=== PATIENT | female | born 1965 | race African-American/Black ===

== ENCOUNTER 2017-01-23 18:46 | Emergency (ER) | payer MEDICARE | END 2017-01-23 21:15 | disposition home or self-care (01) | LOC: D.ER 18:46 | DX: M25.562 Pain in left knee (principal); M25.561 Pain in right knee; M17.0 Bilateral primary osteoarthritis of knee ==

== ENCOUNTER 2017-04-06 15:16 | Emergency (ER) | payer MEDICARE, MEDICAID | END 2017-04-06 17:01 | disposition home or self-care (01) | LOC: D.ER 15:16 | DX: M25.562 Pain in left knee (principal); M25.561 Pain in right knee ==

== ENCOUNTER → 2017-04-13 08:33 | Outpatient (CLI) | payer OTHER ==
[~2017-04-13] VITALS: Ht 162.6 cm; Wt 212.3 kg
[2017-04-13 10:25] VITALS: Ht 162.6 cm; Wt 212.3 kg
== END | disposition home or self-care (01) ==
LOC: D.FANS 08:33
DX: E66.01 Morbid (severe) obesity due to excess calories (principal)

== ENCOUNTER → 2017-06-06 08:05 | Outpatient (CLI) | payer MEDICARE ==
[2017-04-13 10:25] VITALS: BMI 80.3
[~2017-06-06 08:05] MED LIST: DIFLUCAN150 MG PO; DIOVAN HCT 320/1 TA2 PO; METOPROLOL TART50 MG PO; NORVASC10 MG PO; ULTRAM50 MG PO; ZOCOR5 MG PO
[2017-06-06 08:50] LABS: APPEARANCE CLEAR (CLEAR); BILIRUBIN NEGATIVE (NEGATIVE); COLOR YELLOW (YELLOW); GLUCOSE NEGATIVE (NEGATIVE); KETONE NEGATIVE (NEGATIVE); NITRITE NEGATIVE (NEGATIVE); PROTEIN NEGATIVE (NEGATIVE); SPECIFIC GRAVITY 1.015 (1.005-1.020); UROBILINOGEN NORMAL (NORMAL)
[2017-06-06 08:53] LABS: BASOPHILS 0 % (0-2); EOSINOPHILS 0.7 % (0-7); HEMATOCRIT 40.3 % (36.0-48.0); HEMOGLOBIN 12.2 g/dL (12-16); LYMPHOCYTES 42.7 % (15-50); MCH 25.3 pg (26.0-34.0); MCHC 30.3 g/dL (31.0-37.0); MCV 83.4 fL (80.0-100.0); MEAN PLATELET VOLUME 12.1 fL (7.4-10.4); MONOCYTES 8.2 % (2-11); NEUTROPHILS 48.4 % (40-80); PLATELET COUNT 191 10x3/uL (130-400); RBC 4.83 10x6/uL (4.00-5.40); RDW 14.9 % (11.5-14.5); WBC 5.6 10x3/uL (4.8-10.8)
[2017-06-06 09:05] LABS: ALBUMIN 3.4 g/dL (3.4-5.0); ANION GAP 9.4 mmol/L (8-16); BILIRUBIN - DIRECT 0.07 mg/dL (0.00-0.30); BILIRUBIN - INDIRECT 0.23 mg/dL (0.00-1.00); BILIRUBIN - TOTAL 0.3 mg/dL (0.2-1.3); CALCIUM 8.9 mg/dL (8.5-10.1); CARBON DIOXIDE 30.4 mmol/L (21.0-32.0); CHOL - HDL RATIO 3.3 ratio (2.3-4.1); CREATININE - SERUM 0.9 mg/dL (0.6-1.3); POTASSIUM - SERUM 3.8 mmol/L (3.5-5.1); PROTEIN - SERUM 7.8 g/dL (6.4-8.2); THYROID STIMULATING HORMONE 1.87 uIU/mL (0.36-3.74)
[2017-06-07 09:16] LABS: FOLATE (FOLIC ACID) - SERUM 18.8 ng/mL (>3.0)
[2017-06-27 09:01] VITALS: BMI 79.3
== END | disposition home or self-care (01) ==
LOC: D.LAB 08:05 → D.RAD 09:00
PROVIDERS: Surgery
DX: E66.01 Morbid (severe) obesity due to excess calories (principal)

== ENCOUNTER → 2017-06-14 08:34 | Outpatient (CLI) | payer MEDICARE ==
[2017-04-13 10:25] VITALS: BMI 80.3
[2017-06-27 09:01] VITALS: BMI 79.3
== END | disposition home or self-care (01) ==
LOC: D.RT 08:34
DX: J44.9 Chronic obstructive pulmonary disease, unspecified (principal)

== ENCOUNTER 2017-06-27 07:37 | Day surgery (SDC) | payer MEDICARE ==
[~2017-06-27] VITALS: Ht 162.6 cm; Wt 209.5 kg
[2017-06-27] MEDS ORDERED: ZOCOR5 MG PO (08:51)
[2017-06-27] MEDS ORDERED: METOPROLOL TART50 MG PO (08:52)
[2017-06-27] MEDS ORDERED: NORVASC10 MG PO (08:52)
[2017-06-27] MEDS ORDERED: DIOVAN HCT 320/1 TA2 PO (08:52)
[2017-06-27] MEDS ORDERED: DIFLUCAN150 MG PO (08:53)
[2017-06-27] MEDS ORDERED: ULTRAM50 MG PO (08:54)
[2017-06-27 09:01] VITALS: BP 163/89; Ht 162.6 cm; Wt 209.5 kg
[2017-06-27 10:38] LABS: HEMATOCRIT 37.2 % (36.0-48.0); MCH 27.1 pg (26.0-34.0); MCHC 32.3 g/dL (31.0-37.0); MCV 84.2 fL (80.0-100.0); PLATELET COUNT 194 10x3/uL (130-400); RBC 4.42 10x6/uL (4.00-5.40); RDW 15.1 % (11.5-14.5); WBC 6.3 10x3/uL (4.8-10.8)
[2017-06-27 11:08] LABS: CALC OSMOLALITY 278 mosm/kg (275-300); CALCIUM 8.8 mg/dL (8.5-10.1); CARBON DIOXIDE 28.4 mmol/L (21.0-32.0); CHLORIDE - SERUM 107 mmol/L (98-107); CREATININE - SERUM 0.7 mg/dL (0.6-1.3); GLUCOSE 105 mg/dL (74-106); POTASSIUM - SERUM 4.3 mmol/L (3.5-5.1); SODIUM 139 mmol/L (136-145); UREA NITROGEN 14 mg/dL (7-18); eGFR NON AFRICAN AMERICAN > 90 mL/min (90-120)
== END 2017-06-27 11:15 | disposition home or self-care (01) ==
LOC: D.OPS 07:37
PROVIDERS: Anesthesiology
DX: E66.01 Morbid (severe) obesity due to excess calories (principal); I10 Essential (primary) hypertension; G47.33 Obstructive sleep apnea (adult) (pediatric); K44.9 Diaphragmatic hernia without obstruction or gangrene; Z87.891 Personal history of nicotine dependence; Z01.812 Encounter for preprocedural laboratory examination

== ENCOUNTER 2018-02-27 05:50 | Inpatient (IN) | payer MEDICARE ==
[2018-02-24 09:40] LABS: HEMATOCRIT 38.2 % (36.0-48.0); HEMOGLOBIN 12.4 g/dL (12-16); MCH 26.7 pg (26.0-34.0); MCHC 32.5 g/dL (31.0-37.0); MCV 82.3 fL (80.0-100.0); MEAN PLATELET VOLUME 11.7 fL (7.4-10.4); RBC 4.64 10x6/uL (4.00-5.40); RDW 14.9 % (11.5-14.5); WBC 10.9 10x3/uL (4.8-10.8)
[2018-02-24 10:01] LABS: ANION GAP 14.4 mmol/L (8-16); CALCIUM 9.1 mg/dL (8.5-10.1); CARBON DIOXIDE 30.4 mmol/L (21.0-32.0); CREATININE - SERUM 1.2 mg/dL (0.6-1.3); POTASSIUM - SERUM 3.8 mmol/L (3.5-5.1)
[~2018-02-27] VITALS: Ht 162.6 cm; Wt 195.9 kg
[2018-02-27] MEDS ORDERED: AVAPRO300 MG PO (06:22)
[2018-02-27 06:29] VITALS: BP 113/58; BMI 77.4
[2018-02-27 16:24] VITALS: BP 166/72; Ht 162.6 cm; Wt 195.9 kg
[2018-02-27 16:35] VITALS: BP 166/72
[2018-02-27 20:00] VITALS: BP 142/76
[2018-02-28] VITALS: BP 155/85
[2018-02-28 05:00] VITALS: BP 161/88
[2018-02-28 06:05] LABS: BASOPHILS 0.1 % (0-2); EOSINOPHILS 0 % (0-7); HEMATOCRIT 35.6 % (36.0-48.0); HEMOGLOBIN 11.4 g/dL (12-16); IMMATURE GRANULOCYTES 0.2 % (0-5); LYMPHOCYTES 13.5 % (15-50); MCH 25.9 pg (26.0-34.0); MCV 80.7 fL (80.0-100.0); MEAN PLATELET VOLUME 12.3 fL (7.4-10.4); MONOCYTES 6.9 % (2-11); NEUTROPHILS 79.3 % (40-80); PLATELET COUNT 219 10x3/uL (130-400); RBC 4.41 10x6/uL (4.00-5.40); RDW 14.5 % (11.5-14.5); WBC 9.9 10x3/uL (4.8-10.8)
[2018-02-28 06:18] LABS: ALBUMIN 2.6 g/dL (3.4-5.0); ANION GAP 15.2 mmol/L (8-16); BILIRUBIN - TOTAL 0.23 mg/dL (0.2-1.3); CALCIUM 9.1 mg/dL (8.5-10.1); CARBON DIOXIDE 26.2 mmol/L (21.0-32.0); CREATININE - SERUM 1.1 mg/dL (0.6-1.3); POTASSIUM - SERUM 4.4 mmol/L (3.5-5.1); PROTEIN - SERUM 7.2 g/dL (6.4-8.2)
[2018-02-28 09:21] VITALS: BP 154/69
[2018-02-28 12:51] VITALS: BP 136/79
[2018-02-28 17:31] VITALS: BP 142/67
[2018-02-28 20:00] VITALS: BP 163/86
[2018-03-01] VITALS: BP 123/62
[2018-03-01 04:00] VITALS: BP 146/67
[2018-03-01 08:15] VITALS: BP 108/44
[2018-03-01 09:13] LABS: ANION GAP 14.4 mmol/L (8-16); BASOPHILS 0.1 % (0-2); CALCIUM 9.1 mg/dL (8.5-10.1); CARBON DIOXIDE 26.6 mmol/L (21.0-32.0); CREATININE - SERUM 1.3 mg/dL (0.6-1.3); EOSINOPHILS 0.1 % (0-7); HEMATOCRIT 34.4 % (36.0-48.0); HEMOGLOBIN 10.8 g/dL (12-16); IMMATURE GRANULOCYTES 0.4 % (0-5); LYMPHOCYTES 23.7 % (15-50); MAGNESIUM - SERUM 1.9 mg/dL (1.8-2.4); MCH 25.4 pg (26.0-34.0); MCHC 31.4 g/dL (31.0-37.0); MCV 80.9 fL (80.0-100.0); MEAN PLATELET VOLUME 12.4 fL (7.4-10.4); MONOCYTES 9.6 % (2-11); NEUTROPHILS 66.1 % (40-80); PLATELET COUNT 233 10x3/uL (130-400); RBC 4.25 10x6/uL (4.00-5.40); RDW 14.6 % (11.5-14.5)
[2018-03-01] MEDS ORDERED: DILAUDID4 MG PO (10:16)
[2018-03-01] MEDS ORDERED: CYCLOBENZAPRINE10 MG PO (10:17)
[2018-03-01] MEDS ORDERED: ZOFRAN ODT4 MG/UDTAB PO (10:17)
== END 2018-03-01 14:51 | disposition home or self-care (01) | DRG 621 ==
LOC: D.SDCHOLD 05:50 → D.MS 05:50 → D.SDCHOLD 08:00 → D.MS 15:49
PROVIDERS: Anesthesiology; Surgery
PROC: 0BQT4ZZ Repair Diaphragm, Percutaneous Endoscopic Approach (ICD-10-PCS; 2018-02-27)
PROC: 0DB64Z3 Excision of Stomach, Percutaneous Endoscopic Approach, Vertical (ICD-10-PCS; principal; 2018-02-27 08:00)
DX: E66.01 Morbid (severe) obesity due to excess calories (principal); Z68.45 Body mass index [BMI] 70 or greater, adult; I10 Essential (primary) hypertension; G47.33 Obstructive sleep apnea (adult) (pediatric); K44.9 Diaphragmatic hernia without obstruction or gangrene

== ENCOUNTER → 2018-03-20 10:02 | Outpatient (CLI) | payer MEDICARE ==
[2018-02-27 16:24] VITALS: BMI 74.1
[~2018-03-20 10:02] MED LIST changes: +AVAPRO300 MG PO; +CYCLOBENZAPRINE10 MG PO; +DILAUDID4 MG PO; +ZOFRAN ODT4 MG/UDTAB PO
== END | disposition home or self-care (01) ==
LOC: D.RT 10:00
DX: R06.02 Shortness of breath (principal); R94.2 Abnormal results of pulmonary function studies

== ENCOUNTER 2018-03-23 10:56 | Emergency (ER) | payer MEDICARE ==
[~2018-03-23] VITALS: Ht 162.6 cm; Wt 185.5 kg
[2018-03-23 11:19] VITALS: Ht 162.6 cm; Wt 185.5 kg
[2018-03-23 12:00] LABS: ALBUMIN 3.5 g/dL (3.4-5.0); ANION GAP 17.2 mmol/L (8-16); BILIRUBIN - TOTAL 0.54 mg/dL (0.2-1.3); CARBON DIOXIDE 25.8 mmol/L (21.0-32.0); CREATININE - SERUM 0.9 mg/dL (0.6-1.3)
[2018-03-23 12:12] LABS: HEMATOCRIT 41.9 % (36.0-48.0); LYMPHOCYTES 26.7 % (15-50); MCH 25.8 pg (26.0-34.0); MCV 83.1 fL (80.0-100.0); MEAN PLATELET VOLUME 13.6 fL (7.4-10.4); NEUTROPHILS 63.6 % (40-80); PLATELET COUNT 235 10x3/uL (130-400); RBC 5.04 10x6/uL (4.00-5.40); RDW 15.4 % (11.5-14.5); WBC 8.3 10x3/uL (4.8-10.8)
[2018-03-23 12:18] LABS: APPEARANCE SL CLDY (CLEAR); BACTERIA MODERATE /hpf (NONE SEEN); BILIRUBIN NEGATIVE (NEGATIVE); COLOR YELLOW (YELLOW); GLUCOSE NEGATIVE (NEGATIVE); KETONE LARGE mg/dL (NEGATIVE); MUCUS <1+ /lpf (NONE SEEN); NITRITE NEGATIVE (NEGATIVE); PROTEIN TRACE mg/dL (NEGATIVE); UROBILINOGEN NORMAL (NORMAL); WHITE CELLS - URINE 0-5 /hpf (0-5)
[2018-03-23 12:19] LABS: RED CELLS - URINE RARE /hpf (0-5)
[2018-03-23] MEDS ORDERED: KEFLEX500 MG PO (19:12)
[2018-03-23] MEDS ORDERED: ZOFRAN4 MG PO (19:12)
[2018-03-23] MEDS ORDERED: PHENERGAN25 M1 PO (19:12)
[2018-03-23 20:17] VITALS: BP 138/97
== END 2018-03-23 20:17 | disposition home or self-care (01) ==
LOC: D.ER 10:56
PROVIDERS: Family Medicine
DX: E86.0 Dehydration (principal); R11.2 Nausea with vomiting, unspecified; Z98.84 Bariatric surgery status; I10 Essential (primary) hypertension

== ENCOUNTER 2018-03-27 09:58 | Inpatient (IN) | payer MEDICARE, MEDICAID ==
[~2018-03-27] VITALS: Ht 162.6 cm; Wt 183.7 kg
[~2018-03-27 09:58] MED LIST changes: +KEFLEX500 MG PO; +PHENERGAN25 M1 PO; +ZOFRAN4 MG PO
[2018-03-27 10:36] LABS: BASOPHILS 0.1 % (0-2); EOSINOPHILS 0.9 % (0-7); HEMATOCRIT 41.9 % (36.0-48.0); HEMOGLOBIN 13.2 g/dL (12-16); IMMATURE GRANULOCYTES 0.3 % (0-5); LYMPHOCYTES 22.6 % (15-50); MCH 26.1 pg (26.0-34.0); MCHC 31.5 g/dL (31.0-37.0); MCV 82.8 fL (80.0-100.0); NEUTROPHILS 68.1 % (40-80); PLATELET COUNT 220 10x3/uL (130-400); RBC 5.06 10x6/uL (4.00-5.40); RDW 15.1 % (11.5-14.5); WBC 9.2 10x3/uL (4.8-10.8)
[2018-03-27 10:49] LABS: ALBUMIN 3.2 g/dL (3.4-5.0); ALKALINE PHOSPHATASE 80 U/L (46-116); ALT (SGPT) 55 U/L (10-68); CALC OSMOLALITY 286 mosm/kg (275-300); CALCIUM 9.7 mg/dL (8.5-10.1); CARBON DIOXIDE 26.5 mmol/L (21.0-32.0); CHLORIDE - SERUM 105 mmol/L (98-107); CREATININE - SERUM 1.1 mg/dL (0.6-1.3); GLUCOSE 105 mg/dL (74-106); PROTEIN - SERUM 8.4 g/dL (6.4-8.2); SODIUM 145 mmol/L (136-145); UREA NITROGEN 8 mg/dL (7-18); eGFR NON AFRICAN AMERICAN 55 mL/min (90-120)
[2018-03-27 10:53] LABS: AMYLASE - SERUM 46 U/L (25-115); LIPASE 296 U/L (73-393); TROPONIN-I < 0.017 ng/mL (0.000-0.060)
[2018-03-27 13:00] VITALS: BP 136/84
--- NOTE | 2018-03-27 13:34 | NUR ---
2ND NS BOLUS COMPLETED AT 1330
--- NOTE | 2018-03-27 13:34 | NUR ---
1ST POTASSIUM RIDER COMPLETED AT 1330.
[2018-03-27 14:20] LABS: APPEARANCE HAZY (CLEAR); BILIRUBIN NEGATIVE (NEGATIVE); COLOR YELLOW (YELLOW); GLUCOSE NEGATIVE (NEGATIVE); KETONE MODERATE mg/dL (NEGATIVE); NITRITE NEGATIVE (NEGATIVE); PROTEIN TRACE mg/dL (NEGATIVE); SPECIFIC GRAVITY 1.015 (1.005-1.020); UROBILINOGEN NORMAL (NORMAL)
[2018-03-27 14:21] LABS: BACTERIA MODERATE /hpf (NONE SEEN); CALCIUM OXALATE CRYSTALS 0-5 /hpf (NONE SEEN); HYALINE CAST OCC /lpf (NONE SEEN); MUCUS <1+ /lpf (NONE SEEN); URIC ACID CRYSTALS RARE /hpf (NONE SEEN); WHITE CELLS - URINE 0-5 /hpf (0-5)
--- NOTE | 2018-03-27 15:08 | NUR ---
2ND [facility] RIDER COMP 1445.
--- NOTE | 2018-03-27 16:16 | NUR ---
PT IV TO LAC ACCIDENTLY PULLED OUT PER PT. DRESSING APPLIED. BLEEDING CONTROLLED. WILL START ANOTHER IV.
[2018-03-27 17:00] VITALS: BP 155/78
--- NOTE | 2018-03-27 17:35 | NUR ---
MAXIPIME INFUSION COMPLETED AT 1710.
--- NOTE | 2018-03-27 19:00 | NUR ---
FOLVITE INFUSION COMPETED AT 1850
--- NOTE | 2018-03-27 19:15 | NUR ---
PT RESTING ON BED NO S/S OF ACUTE DISTRESS NOTED.
--- NOTE | 2018-03-27 19:25 | NUR ---
RN CONTACTED PHARMACY REGARDING NO BACLOFEN IN PYXIS.
[2018-03-27 21:27] VITALS: BP 177/86
[2018-03-27 23:57] VITALS: BP 177/86; BMI 69.7
[2018-03-28 04:00] VITALS: BP 166/91
--- NOTE | 2018-03-28 07:15 | NUR ---
RECIEVED REPORT FROM IRMA IN ER. RECIEVED PT IN BED WITH STAFF ASSISTING. ALERT AND ORIENTED X4. UP AD ANDREA TO B/R. DENIES ANY NEEDS. WILL CONT. POC,
[2018-03-28 07:40] LABS: BASOPHILS 0.1 % (0-2); EOSINOPHILS 1.8 % (0-7); HEMOGLOBIN 11.3 g/dL (12-16); IMMATURE GRANULOCYTES 0.3 % (0-5); LYMPHOCYTES 24.9 % (15-50); MCH 25.5 pg (26.0-34.0); MCHC 30.5 g/dL (31.0-37.0); MCV 83.5 fL (80.0-100.0); MONOCYTES 7.1 % (2-11); NEUTROPHILS 65.8 % (40-80); PLATELET COUNT 191 10x3/uL (130-400); RBC 4.43 10x6/uL (4.00-5.40); RDW 15.5 % (11.5-14.5); WBC 7.8 10x3/uL (4.8-10.8)
[2018-03-28 07:42] VITALS: BP 131/78
--- NOTE | 2018-03-28 07:42 | NUR ---
RCVD PT FROM PT SHIFT. PT IS LYING ON BACK WITH HOB 45 DEGREES. AAOX3. HR-RRR, PPP, BREATH SOUNDS CLEAR & UNLABORED X2. BOWEL SOUNDS ACTIVE X4. PIV TO RT AC C/D/I WITHOUT ERYTHEMA OR EDEMA NOTED TO SITE. PT DENIES PAIN, N/V/D. DENIES NEEDS. BED LOW, WHEELS LOCKED, CALL LIGHT AND PHONE WITHIN REACH, SIDE RAILS UP X2.
[2018-03-28 08:01] LABS: CALC OSMOLALITY 289 mosm/kg (275-300); CALCIUM 8.6 mg/dL (8.5-10.1); CARBON DIOXIDE 26.9 mmol/L (21.0-32.0); CHLORIDE - SERUM 108 mmol/L (98-107); GLUCOSE 90 mg/dL (74-106); POTASSIUM - SERUM 3.3 mmol/L (3.5-5.1); SODIUM 147 mmol/L (136-145); UREA NITROGEN 6 mg/dL (7-18); eGFR NON AFRICAN AMERICAN 79 mL/min (90-120)
[2018-03-28 08:04] LABS: CREATININE - SERUM 0.8 mg/dL (0.6-1.3)
--- NOTE | 2018-03-28 08:51 | NUR ---
PT UP TO BATHROOM TO VOID. AMB WITHOUT DIFFICULTY. NO FURTHER NEEDS VOICED.
--- NOTE | 2018-03-28 09:12 | NUR ---
CUP OF ICE PROVIDED PER PT REQUEST. NO FURTHER NEEDS VOICED AT THIS TIME.
[2018-03-28 10:24] VITALS: Ht 162.6 cm; Wt 183.7 kg
--- NOTE | 2018-03-28 10:42 | NUR ---
PT UP TO BATHROOM. BED IN ROOM CHANGED OUT. PHYSICAL THERAPY STATES PT IS OK TO AMB PER SELF. WILL CONTINUE TO MONITOR.
--- NOTE | 2018-03-28 10:53 | NUR ---
ICE CHIPS PROVIDED PER PT REQUEST.
--- NOTE | 2018-03-28 11:04 | NUR ---
PROTONIX AND REGLAN GIVEN PER ORDERS. SEE EMAR FOR ADMINISTRATION.
--- NOTE | 2018-03-28 11:23 | NUR ---
POTASSIUM FLUIDS HUNG AND SET TO INFUSE PER ORDERS. SEE EMAR FOR ADMINISTRATION.
[2018-03-28 13:39] VITALS: BP 136/82
--- NOTE | 2018-03-28 13:42 | NUR ---
ROUNDS MADE. VSS. NO NEEDS VOICED. WILL CONT TO MONITOR.
--- NOTE | 2018-03-28 14:02 | NUR ---
PT UP TO BATHROOM. REPORTS BM. WIPES PROVIDED PER REQUEST. NO FURTHER NEEDS VOICED.
--- NOTE | 2018-03-28 16:07 | NUR ---
BACLOFEN GIVEN PER ORDERS. SEE EMAR FOR ADMINISTRATION.
[2018-03-28 17:00] VITALS: BP 143/77
--- NOTE | 2018-03-28 17:50 | NUR ---
ROUNDS MADE. PT SITTING UP IN BED WATCHING TELEVISION. DENIES NEEDS AT THIS TIME. SCHEDULED MEDS GIVEN PER ORDERS. SEE EMAR FOR ADMINISTRATION.
[2018-03-28 19:45] VITALS: BP 150/78
--- NOTE | 2018-03-28 19:45 | NUR ---
ASSESSMENT PER FLOW SHEET, VS OBTAINED, IV IN RIGHT AC INTACT WITH NO REDNESS OR EDEMA INFUSING NS WITH KCL AT 125 ML/HR PER MD ORDERS, SEE EMAR, THIAMINE HUNG PER MD ORDERS, SEE EMAR, PT REPORTS FLATUS, BM TODAY AND VOIDING WITH NO DIFFICULTY, PT DENIES NEEDS OR PAIN AT THIS TIME, BED IN LOW POSITION, SIDE RAILS X 2, CALL LIGHT IN REACH
--- NOTE | 2018-03-28 20:58 | NUR ---
FOLVITE HUNG VIA PUMP AND ADM BACLOFEN PO PER MD ORDERS, SEE EMAR
--- NOTE | 2018-03-28 21:00 | NUR ---
NEW BAG OF NS WITH KCL HUNG IV PER MD ORDERS, SEE EMAR, PT DENIES PAIN, REQUESTED AND SERVED FRESH H20, AND HEATED UP CHICKEN BROTH, PT UP TO BR, VOIDED WITH NO DIFFICULTY, BACK TO BED, PT DENIES FURTHER NEEDS, BED IN LOW POSITION, SIDE RAILS X 2, CALL LIGHT IN REACH
--- NOTE | 2018-03-28 22:15 | NUR ---
PT RESTING WITH EYES CLOSED, RESP QUIET, NO DISTRESS NOTED, LEFT UNDISTURBED AT THIS TIME, BED IN LOW POSITION, SIDE RAILS X 2, CALL LIGHT IN REACH
[2018-03-29 00:30] VITALS: BP 148/72
--- NOTE | 2018-03-29 00:30 | NUR ---
VS OBTAINED PER QUARTER SUPERVISOR
--- NOTE | 2018-03-29 01:06 | NUR ---
PT RESTING WITH EYES CLOSED, AROUSES TO SOFT VERBAL STIMULATION, ADM REGLAN PER MD ORDERS SIVP, SEE EMAR, PT DENIES NEEDS OR PAIN AT THIS TIME, BED IN LOW POSITION, SIDE RAILS X 2, CALL LIGHT IN REACH
--- NOTE | 2018-03-29 03:20 | NUR ---
ADM MAXIPINE IVPB PER MD ORDERS, SEE EMAR, NO NEEDS VOICED, BED IN LOW POSITION, SIDE RAILS X 2, CALL LIGHT IN REACH
[2018-03-29 05:13] VITALS: BP 136/78
--- NOTE | 2018-03-29 05:13 | NUR ---
LOOPER OPERATOR TO ROOM FOR VS, THIS RN TO ROOM ALSO, PT DENIES NEEDS OR PAIN AT THIS TIME, BED IN LOW POSITION, SIDE RAILS X 2, CALL LIGHT IN REACH
[2018-03-29 06:34] LABS: BASOPHILS 0.3 % (0-2); EOSINOPHILS 2.4 % (0-7); HEMATOCRIT 38.7 % (36.0-48.0); IMMATURE GRANULOCYTES 0.1 % (0-5); LYMPHOCYTES 27.6 % (15-50); MCH 25.4 pg (26.0-34.0); MONOCYTES 7.8 % (2-11); NEUTROPHILS 61.8 % (40-80); PLATELET COUNT 184 10x3/uL (130-400); RBC 4.72 10x6/uL (4.00-5.40); RDW 15.4 % (11.5-14.5); WBC 7.4 10x3/uL (4.8-10.8)
[2018-03-29 06:50] LABS: CALC OSMOLALITY 289 mosm/kg (275-300); CALCIUM 9.1 mg/dL (8.5-10.1); CARBON DIOXIDE 28.4 mmol/L (21.0-32.0); CHLORIDE - SERUM 109 mmol/L (98-107); CREATININE - SERUM 0.8 mg/dL (0.6-1.3); GLUCOSE 111 mg/dL (74-106); POTASSIUM - SERUM 3.1 mmol/L (3.5-5.1); SODIUM 147 mmol/L (136-145); eGFR NON AFRICAN AMERICAN 79 mL/min (90-120)
[2018-03-29 07:04] LABS: UREA NITROGEN 4 mg/dL (7-18)
--- NOTE | 2018-03-29 07:59 | NUR ---
40 MEQ KCL GIVEN PO PER ELECTROLYTE PROTOCOL FOR LOW POTASSIUM. PT TOLERATED WELL. DENIES PAIN OR NEEDS.
[2018-03-29 08:01] VITALS: BP 146/58
--- NOTE | 2018-03-29 08:01 | NUR ---
SHIFT ASSESSMENT COMPLETED AT THIS TIME. PT IS AAOX3, HR-RRR, PPP, BREATH SOUNDS CLEAR & UNLABORED X2, BOWEL SOUNDS ACTIVE X4. PIV TO RT AC PATENT AND C/D/I. PT REPORTS NO N/V/D THIS AM. DENIES PAIN OR NEEDS. BED LOW, WHEELS LOCKED, CALL LIGHT AND PHONE WITHIN REACH, SIDE RAILS UP X2.
--- NOTE | 2018-03-29 09:42 | NUR ---
SCHEDULED MEDS GIVEN PER ORDERS. SEE EMAR FOR ADMINISTRATION.
--- NOTE | 2018-03-29 11:15 | NUR ---
ROUNDS MADE. PT DENIES PAIN OR NEEDS AT THIS TIME. WILL CONT TO MONITOR PRN
[2018-03-29 12:15] VITALS: BP 168/92
--- NOTE | 2018-03-29 12:37 | NUR ---
PIV SL LOCKED AT THIS TIME SO THAT PT MAY GIVE HERSELF A SPONGE BATH. BATHING CLOTHES, CLEAN GOWN, AND PINK PAD PROVIDED. NO FURTHER NEEDS VOICED.
--- NOTE | 2018-03-29 13:00 | NUR ---
PT DENIES WANTING CHICKEN BROTH BROUGHT ON MEAL TRAY. BEEF BROTH OFFERED AND PT IS AGREEABLE. SAME PROVIDED. NO FURTHER NEEDS VOICED.
--- NOTE | 2018-03-29 13:24 | NUR ---
DR BOO TO PT ROOM AT THIS TIME.
--- NOTE | 2018-03-29 13:31 | NUR ---
DR BOO OFF UNIT. V/O RCVD THAT PT MAY HAVE FULL LIQUID DIET.
--- NOTE | 2018-03-29 14:02 | NUR ---
PT SITTING UP IN BED WATCHING T.V. DENIES NEEDS.
--- NOTE | 2018-03-29 17:37 | NUR ---
LEVSIN GIVEN PER ORDERS. SEE EMAR. PT UP TO BATHROOM AMB PER SELF WITHOUT DIFFICULTY. FOLIC ACID SET TO INFUSE PER ORDERS. SEE EMAR FOR ADMINISTRATION. NO FURTHER NEEDS VOICED.
--- NOTE | 2018-03-29 18:44 | NUR ---
FOLIC ACID INFUSION COMPLETE. PT DENIES NEEDS.
--- NOTE | 2018-03-29 19:08 | NUR ---
REPORT GIVEN TO ONCOMING NURSERY HELPER NURSE.
--- NOTE | 2018-03-29 19:25 | NUR ---
SITTING UP IN BED. ALERT AND ORIENTED X4. RESP EVEN AND NONLABORED. ABD OBESE. OLD SCARS NOTED FROM GASTRIC BYPASS DONE 02/27/18. BS ACTIVE X4 QUADS. DENIES N/V. REPORTS LOOSE BM TODAY. AMBULATORY. NS WITH KCL INFUSING @ 60 ML/HR IN RT AC WITHOUT DIFF. NO DISTRESS. SR ELEVATED X2. CL IN REACH.
[2018-03-29 19:55] VITALS: BP 161/91
--- NOTE | 2018-03-29 23:47 | NUR ---
HAS BEEN DRINKING GRAPE JUICE AND BROTH. VISITOR AT BEDSIDE. NO VOMITING NOTED. YASMEEN FLUIDS WELL SO FAR. CL IN REACH.
[2018-03-29 23:49] VITALS: BP 157/81
[2018-03-30 03:55] VITALS: BP 162/79
--- NOTE | 2018-03-30 04:22 | NUR ---
WENT TO SLEEP LATE. NO N/V SO FAR THIS SHIFT. NO DISTRESS. CL IN REACH
[2018-03-30 07:01] LABS: BASOPHILS 0.2 % (0-2); HEMATOCRIT 36.9 % (36.0-48.0); HEMOGLOBIN 11.5 g/dL (12-16); IMMATURE GRANULOCYTES 0.2 % (0-5); LYMPHOCYTES 27.1 % (15-50); MCH 25.7 pg (26.0-34.0); MCHC 31.2 g/dL (31.0-37.0); MCV 82.4 fL (80.0-100.0); MONOCYTES 10.1 % (2-11); NEUTROPHILS 60.4 % (40-80); PLATELET COUNT 189 10x3/uL (130-400); RBC 4.48 10x6/uL (4.00-5.40); RDW 15.5 % (11.5-14.5); WBC 5.5 10x3/uL (4.8-10.8)
[2018-03-30 07:21] LABS: ANION GAP 12.8 mmol/L (8-16); CALCIUM 9.2 mg/dL (8.5-10.1); CARBON DIOXIDE 31.2 mmol/L (21.0-32.0); CREATININE - SERUM 0.9 mg/dL (0.6-1.3)
[2018-03-30 08:01] VITALS: BP 158/85
[2018-03-30] MEDS ORDERED: LEVSIN/ANASP0.125 MG PO (08:43)
[2018-03-30] MEDS ORDERED: BACLOFEN10 MG PO (08:44)
--- NOTE | 2018-03-30 09:00 | NUR ---
AM ASSESSMENT COMPLETED CHARTED ON FLOWSHEET. PT DENIES NAUSEA AND STATES SHE HAS NOT HAD ANY VOMITING SINCE ADMIT. UP AD ANDREA AND DENIES ANY DIZZINESS WHEN GETTING UP FROM BED. NO COMPLAINTS OR NEEDS AT THIS TIME. SIDE RAILS UP X 2 WITH PHONE AND CALL LIGHT IN REACH.
--- NOTE | 2018-03-30 10:45 | NUR ---
DISCHARGE INSTRUCTIONS GIVEN TO PATIENT VERBALLY AND IN PRINTED HANDOUTS INCLUDING INFORMATION ON PRESCIRBED MEDICATIONS TO BE TAKEN AT HOME. PATIENT INFORMED OF SCHEDULED FOLLOW UP WITH DR. BOO IN 1 WEEK ON 04/06/2018 AT 9:45 AM. PT. VERBALIZED UNDERSTANDING OF ALL DISCHARGE INSTRUCTIONS. PT. ALSO GIVEN COPY OF THE PHASE 2 BARIATRIC DIET SHE IS TO FOLLOW ORDERED BY DR. BOO.
--- NOTE | 2018-03-30 10:50 | MORECARE ---
CASE MANAGEMENT DISCHARGE SUMMARY PATIENT: KIM MARQUEZ UNIT: [id number] ADM DATE: 03/27/18 AGE: 52 : 63 SEX: F ROOM/BED: D.1222 AUTHOR: KAMRAN IMR PHYSICIAN: REFERRING PHYSICIAN: SUN BOO MD DATE OF SERVICE: 03/30/18 Discharge Plan Patient Name: KIM MARQUEZ Facility: [facility]:[place] : 1965 Planned Disposition: Home Anticipated Discharge Date: 03/30/18 Discharge Date: Expected LOS: 3 Initial Reviewer: [email or web address] Initial Review Date: 03/30/2018 Generated: 03/30/18 11:50 am DCPIA - Discharge Planning Initial Assessment Updated by [email or web address]: Andreina Montano on 03/30/18 10:49 am * Is the patient Alert and Oriented? Yes * How many steps to enter\exit or inside your home? * PCP Dr Erin Torres, * Pharmacy [facility] on [facility] * Preadmission Environment Home with Family * ADLs Independent * Equipment Cane CPAP Elevated [place] Seat Grab Bars Shower Chair * Other Equipment [place] Patient provides CPAP * List name and contact numbers for known caregivers / representatives who currently or will assist patient after discharge: Albertina Marquez, mother, * Verbal permission to speak to the caregivers and representatives has been obtained from the patient. No * Community resources currently utilized None * Additional services required to return to the preadmission environment? No * Can the patient safely return to the preadmission environment? Yes * Has this patient been hospitalized within the prior 30 days at any hospital? No Patient Name: KIM MARQUEZ Page [id number] at 1050 All edits/amendments must be made on the electronic document DICTATION DATE: 03/30/181048 FRONT END WEB DESIGNER: VIJAY 03/30/181048 RPT#: [id number] DC DATE: STATUS: ADM IN [facility] [address] [place] [address] END OF REPORT
--- NOTE | 2018-03-30 10:57 | NUR ---
PIV DISCONTINUED AT THIS TIME WITH BANDAID PLACED TO IV SITE.
--- NOTE | 2018-03-30 11:06 | MORECARE ---
CASE MANAGEMENT DISCHARGE SUMMARY PATIENT: KIM MARQUEZ UNIT: [id number] ADM DATE: 03/27/18 AGE: 52 : 63 SEX: F ROOM/BED: D.1222 AUTHOR: KAMRAN MIR PHYSICIAN: REFERRING PHYSICIAN: SUN BOO MD DATE OF SERVICE: 03/30/18 Discharge Plan Patient Name: KIM MARQUEZ Facility: [facility]:[place] : 1965 Planned Disposition: Home Anticipated Discharge Date: 03/30/18 Discharge Date: Expected LOS: 3 Initial Reviewer: [email or web address] Initial Review Date: 03/30/2018 Generated: 03/30/18 12:06 pm Comments DCP- Discharge Planning Updated by [email or web address]: Andreina Montano on 03/30/18 10:[address] Patient Name: KIM MARQUEZ Admission Status: ER Accout number: [id number] Admission Date: 03-27-2018 : 1965 Admission Diagnosis: Attending: SUN BOO Current LOS: 3 Anticipated DC Date: 03-30-2018 Planned Disposition: Home Primary Insurance: [employer] MEDICARE ADV Discharge Planning Comments: Late entry for 10:00. CM met with patient about discharge planning / needs. Patient states her plan is to return home where she lives with her mother. States she has a cane and CPAP ([employer]). States she thinks the settings on her CPAP need to be lowered. Informed patient that CPAP settings are set based on orders from Dr.Christine Torres and patient would need to talk to her doctor about changing the orders for the CPAP settings. Patient verbalized understanding and stated she would get with Dr. Torres about the CPAP, Patient states her mother has a shower chair, grab bars, and a raised commode in her bathroom that the patient can use if needed. Denies need for home health or other community resource needs. States she feels safe in her home environment and denies any discharge planning needs or concerns at this time. CM provided patient an excuse letter for school. CM explained and served DC IMM. CM will continue to follow and assist as needed with discharge planning needs. Braiding Machine Operator: Andreina Montano DCPIA - Discharge Planning Initial Assessment Updated by [email or web address]: Andreina Montano on 03/30/18 10:49 am * Is the patient Alert and Oriented? Yes * How many steps to enter\exit or inside your home? * PCP Dr Erin Torres, * Pharmacy [facility] on [facility] * Preadmission Environment Home with Family * ADLs Independent * Equipment Cane CPAP Elevated [place] Seat Grab Bars Shower Chair * Other Equipment [employer] [facility] Patient provides CPAP * List name and contact numbers for known caregivers / representatives who currently or will assist patient after discharge: Albertina Marquez, mother, * Verbal permission to speak to the caregivers and representatives has been obtained from the patient. No * Community resources currently utilized None * Additional services required to return to the preadmission environment? No * Can the patient safely return to the preadmission environment? Yes * Has this patient been hospitalized within the prior 30 days at any hospital? No Coverage Notice Reviewer: [id number] - Andreina Montano Notice Issued Date-Time: 03/30/2018 10:05 Notice Type: IM Discharge Notice Notice Delivered To: Patient Relationship to Patient: Self Therapeutic Recreation Leader Name: Delivery Method: - Daya Days: Prior Verbal Notification: Recipient Understood Notice: Yes Recipient Signature: Yes Med Rec Note Co-signed by Attending: Coverage Notice Comment: Last DP export: 03/30/18 9:50 a Patient Name: KIM MARQUEZ Page [phone] at 1106 All edits/amendments must be made on the electronic document DICTATION DATE: 03/30/181105 SIZE CHANGER: VIJAY 03/30/18 110 RPT#: [id number] DC DATE: STATUS: ADM IN [facility] [address] [place] [address] END OF REPORT
--- NOTE | 2018-03-30 11:45 | NUR ---
PT CALLS OUT STATING THAT SHE IS READY TO LEAVE, WINE AND SPIRITS CLERK CALLED. PT TAKEN OUT BY WHEELCHAIR, HOME WITH FAMILY.
--- NOTE | 2018-03-30 16:43 | MORECARE ---
CASE MANAGEMENT DISCHARGE SUMMARY PATIENT: KIM MARQUEZ UNIT: [id number] ADM DATE: 03/27/18 AGE: 52 : 63 SEX: F ROOM/BED: D.1222 AUTHOR: ADEOLADOC PHYSICIAN: REFERRING PHYSICIAN: SUN BOO MD DATE OF SERVICE: 03/30/18 Discharge Plan Patient Name: KIM MARQUEZ Facility: [facility]:[place] : 1965 Planned Disposition: Home Anticipated Discharge Date: 03/30/18 Discharge Date: 03/30/2018 Expected LOS: 3 Initial Reviewer: [email or web address] Initial Review Date: 03/30/2018 Generated: 03/30/18 5:42 pm Comments DCP- Discharge Planning Updated by [email or web address]: Andreina Montano on 03/30/18 10:[address] Patient Name: KIM MARQUEZ Admission Status: ER Accout number: [id number] Admission Date: 03-27-2018 : 1965 Admission Diagnosis: Attending: SUN BOO Current LOS: 3 Anticipated DC Date: 03-30-2018 Planned Disposition: Home Primary Insurance: [employer] MEDICARE ADV Discharge Planning Comments: Late entry for 10:00. CM met with patient about discharge planning / needs. Patient states her plan is to return home where she lives with her mother. States she has a cane and CPAP ([employer]). States she thinks the settings on her CPAP need to be lowered. Informed patient that CPAP settings are set based on orders from Dr.Christine Torres and patient would need to talk to her doctor about changing the orders for the CPAP settings. Patient verbalized understanding and stated she would get with Dr. Torres about the CPAP, Patient states her mother has a shower chair, grab bars, and a raised commode in her bathroom that the patient can use if needed. Denies need for home health or other community resource needs. States she feels safe in her home environment and denies any discharge planning needs or concerns at this time. CM provided patient an excuse letter for school. CM explained and served DC IMM. CM will continue to follow and assist as needed with discharge planning needs. Matcher Leather Parts: Andreina Montano DCPIA - Discharge Planning Initial Assessment Updated by [email or web address]: Andreina Montano on 03/30/18 10:49 am * Is the patient Alert and Oriented? Yes * How many steps to enter\exit or inside your home? * PCP Dr Erin Torres, * Pharmacy [facility] on [facility] * Preadmission Environment Home with Family * ADLs Independent * Equipment Cane CPAP Elevated [place] Seat Grab Bars Shower Chair * Other Equipment [employer] [facility] Patient provides CPAP * List name and contact numbers for known caregivers / representatives who currently or will assist patient after discharge: Albertina Marquez, mother, * Verbal permission to speak to the caregivers and representatives has been obtained from the patient. No * Community resources currently utilized None * Additional services required to return to the preadmission environment? No * Can the patient safely return to the preadmission environment? Yes * Has this patient been hospitalized within the prior 30 days at any hospital? No Coverage Notice Reviewer: [id number] - Andreina Montano Notice Issued Date-Time: 03/30/2018 10:05 Notice Type: IM Discharge Notice Notice Delivered To: Patient Relationship to Patient: Self Reception Centre Manager Name: Delivery Method: - Daya Days: Prior Verbal Notification: Recipient Understood Notice: Yes Recipient Signature: Yes Med Rec Note Co-signed by Attending: Coverage Notice Comment: Last DP export: 03/30/18 10:06 a Patient Name: KIM MARQUEZ Page [phone] at 1643 All edits/amendments must be made on the electronic document DICTATION DATE: 03/30/181641 AUTOMOTIVE ELECTRICAL FITTER: VIJAY 03/30/181641 RPT#: [id number] DC DATE:03/30/18 STATUS: DIS IN [facility] [address] [place] [address] END OF REPORT
== END 2018-03-30 11:45 | disposition home or self-care (01) | DRG 641 ==
LOC: D.ER 09:58 → D.WS 11:20 → D.EDHOLD 11:20 → D.WS 20:06
PROVIDERS: Family Medicine; ADMIT Surgery
DX: E86.0 Dehydration (principal); Z68.45 Body mass index [BMI] 70 or greater, adult; R11.2 Nausea with vomiting, unspecified; I10 Essential (primary) hypertension; G47.33 Obstructive sleep apnea (adult) (pediatric); E66.01 Morbid (severe) obesity due to excess calories; E87.0 Hyperosmolality and hypernatremia

== ENCOUNTER 2018-06-05 06:26 | Day surgery (SDC) | payer MEDICARE, MEDICAID ==
[~2018-06-05] VITALS: Ht 162.6 cm; Wt 174.1 kg
[~2018-06-05 06:26] MED LIST changes: +BACLOFEN10 MG PO; +LEVSIN/ANASP0.125 MG PO
[2018-06-05 07:03] LABS: HEMATOCRIT 36.1 % (36.0-48.0); HEMOGLOBIN 11.4 g/dL (12-16); MCH 25.4 pg (26.0-34.0); MCHC 31.6 g/dL (31.0-37.0); MCV 80.6 fL (80.0-100.0); PLATELET COUNT 211 10x3/uL (130-400); RBC 4.48 10x6/uL (4.00-5.40); RDW 16.6 % (11.5-14.5); WBC 6.9 10x3/uL (4.8-10.8)
[2018-06-05] MEDS ORDERED: FAMOTIDINE10 MG PO (07:12)
[2018-06-05] MEDS ORDERED: OMEPRAZOLE40 MG PO ×2 (07:13→08:18)
[2018-06-05 07:16] LABS: CALCIUM 8.9 mg/dL (8.5-10.1); CREATININE - SERUM 0.9 mg/dL (0.6-1.3)
[2018-06-05 07:18] VITALS: Ht 162.6 cm; Wt 174.1 kg
[2018-06-05] MEDS ORDERED: PEPCID40 MG PO (08:19)
== END 2018-06-05 09:30 | disposition home or self-care (01) ==
LOC: D.OPS 06:26
PROVIDERS: Anesthesiology; ATTEND Surgery
DX: K31.5 Obstruction of duodenum (principal); K21.9 Gastro-esophageal reflux disease without esophagitis; Z98.84 Bariatric surgery status; K20.9 Esophagitis, unspecified; Z01.812 Encounter for preprocedural laboratory examination

== ENCOUNTER → 2018-08-21 12:36 | Outpatient (CLI) | payer MEDICARE, MEDICAID ==
[2018-06-05 07:18] VITALS: BMI 65.9
[~2018-08-21 12:36] MED LIST changes: +CITRACAL + D E1 EACH PO; +FAMOTIDINE10 MG PO; +FERROUS SULFAT325 MG PO; +MACROBID100 MG PO; +MULTI-DAY VITAM1 TAB PO; +OMEPRAZOLE40 MG PO; +PEPCID40 MG PO; +PHENAZOPYRIDIN200 MG PO; +VITAMIN B-121000 MCG PO
[2018-08-21 14:32] LABS: BASOPHILS 0.3 % (0-2); EOSINOPHILS 0.8 % (0-7); HEMATOCRIT 38.1 % (36.0-48.0); HEMOGLOBIN 12.2 g/dL (12-16); IMMATURE GRANULOCYTES 0.1 % (0-5); MCH 25.7 pg (26.0-34.0); MCV 80.4 fL (80.0-100.0); MONOCYTES 7.9 % (2-11); NEUTROPHILS 58.9 % (40-80); PLATELET COUNT 214 10x3/uL (130-400); RBC 4.74 10x6/uL (4.00-5.40); RDW 15.9 % (11.5-14.5); WBC 7.8 10x3/uL (4.8-10.8)
[2018-08-21 15:13] LABS: CREATININE - SERUM 0.8 mg/dL (0.6-1.3)
== END | disposition home or self-care (01) ==
LOC: D.LAB 12:36
PROVIDERS: ATTEND Surgery
DX: Z01.812 Encounter for preprocedural laboratory examination (principal); I10 Essential (primary) hypertension; G47.33 Obstructive sleep apnea (adult) (pediatric); M15.3 Secondary multiple arthritis; Z68.45 Body mass index [BMI] 70 or greater, adult

== ENCOUNTER 2018-10-18 14:09 | Emergency (ER) | payer MEDICARE, MEDICAID ==
[~2018-10-18] VITALS: Ht 162.6 cm; Wt 151.4 kg
[~2018-10-18 14:09] MED LIST changes: -CITRACAL + D E1 EACH PO; -FERROUS SULFAT325 MG PO; -MACROBID100 MG PO; -MULTI-DAY VITAM1 TAB PO; -PHENAZOPYRIDIN200 MG PO; -VITAMIN B-121000 MCG PO
[2018-10-18 14:21] VITALS: Ht 162.6 cm; Wt 151.4 kg
[2018-10-18] MEDS ORDERED: MULTI-DAY VITAM1 TAB PO (14:26)
[2018-10-18] MEDS ORDERED: CITRACAL + D E1 EACH PO (14:27)
[2018-10-18] MEDS ORDERED: VITAMIN B-121000 MCG PO (14:27)
[2018-10-18] MEDS ORDERED: FERROUS SULFAT325 MG PO (14:27)
[2018-10-18 18:17] LABS: APPEARANCE HAZY (CLEAR); BILIRUBIN NEGATIVE (NEGATIVE); COLOR YELLOW (YELLOW); GLUCOSE NEGATIVE (NEGATIVE); KETONE MODERATE mg/dL (NEGATIVE); NITRITE POSITIVE (NEGATIVE); PROTEIN TRACE mg/dL (NEGATIVE); UROBILINOGEN NORMAL (NORMAL)
[2018-10-18 18:18] LABS: BACTERIA MANY /hpf (NONE SEEN); EPITHELIAL CELLS 0-5 /hpf (0-5); MUCUS <1+ /lpf (NONE SEEN); RED CELLS - URINE 0-5 /hpf (0-5); WHITE CELLS - URINE 0-5 /hpf (0-5)
[2018-10-18 19:28] LABS: BASOPHILS 0.2 % (0-2); EOSINOPHILS 1.5 % (0-7); HEMOGLOBIN 12.5 g/dL (12-16); IMMATURE GRANULOCYTES 0.2 % (0-5); LYMPHOCYTES 42.5 % (15-50); MCH 25.6 pg (26.0-34.0); MCHC 32.1 g/dL (31.0-37.0); MCV 79.9 fL (80.0-100.0); MONOCYTES 8.5 % (2-11); NEUTROPHILS 47.1 % (40-80); PLATELET COUNT 211 10x3/uL (130-400); RBC 4.88 10x6/uL (4.00-5.40); RDW 15.1 % (11.5-14.5); WBC 5.9 10x3/uL (4.8-10.8)
[2018-10-18 19:53] LABS: ALBUMIN 3.7 g/dL (3.4-5.0); ALKALINE PHOSPHATASE 76 U/L (46-116); ALT (SGPT) 18 U/L (10-68); BILIRUBIN - TOTAL 0.43 mg/dL (0.2-1.3); CALC OSMOLALITY 278 mosm/kg (275-300); CALCIUM 9.5 mg/dL (8.5-10.1); CARBON DIOXIDE 29.4 mmol/L (21.0-32.0); CHLORIDE - SERUM 105 mmol/L (98-107); CREATININE - SERUM 0.8 mg/dL (0.6-1.3); GLUCOSE 80 mg/dL (74-106); POTASSIUM - SERUM 3.5 mmol/L (3.5-5.1); PROTEIN - SERUM 7.9 g/dL (6.4-8.2); SODIUM 141 mmol/L (136-145); UREA NITROGEN 10 mg/dL (7-18); eGFR NON AFRICAN AMERICAN 79 mL/min (90-120)
[2018-10-18] MEDS ORDERED: KEFLEX500 MG PO (22:15)
[2018-10-18] MEDS ORDERED: PHENAZOPYRIDIN200 MG PO (22:15)
[2018-10-18] MEDS ORDERED: MACROBID100 MG PO (22:15)
[2018-10-18 23:10] VITALS: BP 171/95
== END 2018-10-18 23:10 | disposition home or self-care (01) ==
LOC: D.ER 14:09
PROVIDERS: Emergency Medicine; Family Medicine
DX: N39.0 Urinary tract infection, site not specified (principal); R10.30 Lower abdominal pain, unspecified; R30.0 Dysuria

== ENCOUNTER 2019-07-03 21:23 | Emergency (ER) | payer MEDICARE ==
[~2019-07-03] VITALS: Ht 162.6 cm; Wt 128.6 kg
[~2019-07-03 21:23] MED LIST changes: +CITRACAL + D E1 EACH PO; +FERROUS SULFAT325 MG PO; +MACROBID100 MG PO; +MULTI-DAY VITAM1 TAB PO; +PHENAZOPYRIDIN200 MG PO; +VITAMIN B-121000 MCG PO
[2019-07-03 21:31] VITALS: Ht 162.6 cm; Wt 128.6 kg
[2019-07-03] MEDS ORDERED: IBUPROFEN800 MG PO (22:14)
[2019-07-03] MEDS ORDERED: ACETAMINOPHEN500 M1 PO (22:14)
[2019-07-03 22:45] VITALS: BP 147/78
== END 2019-07-03 22:47 | disposition home or self-care (01) ==
LOC: D.ER 21:23
DX: S09.90XA Unspecified injury of head, initial encounter (principal); R51 Headache; M79.18 Myalgia, other site; I10 Essential (primary) hypertension; K21.9 Gastro-esophageal reflux disease without esophagitis; W22.8XXA Striking against or struck by other objects, initial encounter; Y93.9 Activity, unspecified; Y92.9 Unspecified place or not applicable

== ENCOUNTER 2019-07-19 05:34 | Day surgery (SDC) | payer MEDICARE ==
[~2019-07-19] VITALS: Ht 162.6 cm; Wt 128.6 kg
[~2019-07-19 05:34] MED LIST changes: +ACETAMINOPHEN500 M1 PO; +IBUPROFEN800 MG PO
[2019-07-19 06:12] LABS: HEMATOCRIT 35.7 % (36.0-48.0); MCH 26.2 pg (26.0-34.0); MCHC 30.8 g/dL (31.0-37.0); MEAN PLATELET VOLUME 12.3 fL (7.4-10.4); RBC 4.2 10x6/uL (4.00-5.40); RDW 13.3 % (11.5-14.5); WBC 4.8 10x3/uL (4.8-10.8)
[2019-07-19 07:08] VITALS: BP 144/72; Ht 162.6 cm; Wt 128.6 kg
--- NOTE | 2019-07-19 10:04 | NUR ---
0955-IV D/C 1000-D/C INSTRUCTIONS REVIEWED. 1005-D/C HOME VIA WHEELCHAIR TO DAUGHTER.
--- NOTE | 2019-08-06 10:20 | OP ---
PATIENT NAME: KIM MARQUEZ MEDICAL RECORD: [id number] :63 LOCATION:[facility] ADMISSION DATE: SURGEON: SUN BOO MD DATE OF OPERATION: 07/19/2019 SURGEON: Sun Boo MD PREOPERATIVE DIAGNOSES: Dysphagia, intractable nausea. POSTOPERATIVE DIAGNOSES: Dysphagia, intractable nausea, and vomiting, stricture. PROCEDURE PERFORMED: EGD with balloon dilatation. ANESTHESIA: Total intravenous anesthesia. COMPLICATIONS: None. SPECIMENS: None. Case contaminated. OPERATIVE COURSE: After consent was obtained, the patient was taken to the endoscopy suite. A timeout was taken to confirm the correct patient and procedure. Adequate IV anesthesia was given. A bite block was placed. Hurricaine spray was administered. The patient was placed in left lateral decubitus position. Gastroscope was passed through the bite block into the posterior oropharynx. It was passed posterior to the epiglottis under direct endoscopic vision. Scope was then slowly advanced through the esophagus under direct vision, it was advanced through the GE junction and into the stomach. The scope was traversed across the stomach. There was an area of stricturing in the mid to distal esophagus in relationship to the remaining portion of the stomach. This stricture was easily traversed with the scope. The scope was then passed through the pylorus into the first and second portion of the duodenum. There was no evidence of duodenitis. The scope was retracted to the antral region, it was retroflexed again. An area of stricture was noted in the mid to distal esophagus. At this time, the scope was slightly retracted and an endoscopic balloon dilator was placed 18-20 mm. The dilator was passed through the working channel scope and inflated across the stricture to 20 mm and held for approximately 4 minutes. The balloon was deflated and removed. There was no evidence of mucosal trauma. The stricture tolerated the dilation well. At this time, the scope was again slowly withdrawn to the stomach. There was no evidence of injury or mucosal trauma. At the GE junction, the Z-line appeared normal. Minimal esophagitis was noted. Scope was then carefully and slowly removed to the esophagus with no abnormalities identified. At this time, the scope was removed and the procedure was terminated. At the end of the procedure, all needle and instrument counts were correct. No complications occurred. The patient was transferred to the outpatient recovery area in satisfactory condition. TRANSINT:[id number] Voice Confirmation ID: [id number] DOCUMENT ID: [id number] OPERATIVE REPORT [id number] KIM MARQUEZ JAMES J MD at 1020 CC: [id number] DICTATION DATE: 08/03/19 1049 STAVE HEWER: 08/03/19 1116 [facility] 07/19/19 [place] [id number] [place] [id number]
== END 2019-07-19 10:05 | disposition home or self-care (01) ==
LOC: D.OPS 05:34
PROVIDERS: Anesthesiology; ATTEND Surgery
DX: R13.10 Dysphagia, unspecified (principal); R11.2 Nausea with vomiting, unspecified; K22.2 Esophageal obstruction; E66.01 Morbid (severe) obesity due to excess calories; I10 Essential (primary) hypertension; G47.33 Obstructive sleep apnea (adult) (pediatric); Z68.45 Body mass index [BMI] 70 or greater, adult; M15.3 Secondary multiple arthritis; L98.7 Excessive and redundant skin and subcutaneous tissue

== ENCOUNTER 2020-05-19 07:35 | Observation (INO) | payer MEDICARE, MEDICAID ==
[2020-05-14 13:27] LABS: BASOPHILS 0.6 % (0-2); EOSINOPHILS 2.5 % (0-7); HEMATOCRIT 36.6 % (36.0-48.0); HEMOGLOBIN 11.2 g/dL (12-16); LYMPHOCYTE ABS# 1.79 10x3/uL (1.18-3.74); LYMPHOCYTES 49.9 % (15-50); MCH 25.6 pg (26.0-34.0); MCHC 30.6 g/dL (31.0-37.0); MCV 83.6 fL (80.0-100.0); MEAN PLATELET VOLUME 11.1 fL (7.4-10.4); MONOCYTES 7.5 % (2-11); NEUTROPHIL ABS# 1.42 10x3/uL (1.56-6.13); NEUTROPHILS 39.5 % (40-80); PLATELET COUNT 194 10x3/uL (130-400); RBC 4.38 10x6/uL (4.00-5.40); RDW 13.6 % (11.5-14.5); WBC 3.6 10x3/uL (4.8-10.8)
[2020-05-14 13:33] LABS: ANION GAP 5.8 mmol/L (8-16); CALCIUM 9.2 mg/dL (8.5-10.1); CARBON DIOXIDE 33.7 mmol/L (21.0-32.0); POTASSIUM - SERUM 4.5 mmol/L (3.5-5.1)
[2020-05-14 13:38] LABS: APTT 30.1 SECONDS (22.8-39.4); INR 1.06 (0.85-1.17); PROTIME 12.7 SECONDS (11.6-15.0)
[2020-05-14 14:04] LABS: BILIRUBIN NEGATIVE (NEGATIVE); KETONE NEGATIVE (NEGATIVE); NITRITE NEGATIVE (NEGATIVE)
[2020-05-14 14:11] LABS: WHITE CELLS - URINE 0-5 HPF (0-4)
[2020-05-14 14:12] LABS: BACTERIA FEW HPF (NONE SEEN)
[~2020-05-19] VITALS: Ht 162.6 cm; Wt 115.7 kg
[2020-05-19] VITALS (13 sets, daily range): BP systolic 126–156; BP diastolic 58–83; BMI 43.3; BMI 43.8
--- NOTE | ~2020-05-19 | OP ---
PATIENT NAME: KIM MARQUEZ MEDICAL RECORD: [id number] :63 LOCATION:D. D.1209 ADMISSION DATE: SURGEON: WILLI MIKE MD DATE OF OPERATION: 05/19/2020 PREOPERATIVE DIAGNOSES: 1. Osteoarthritis, left knee. 2. Obesity. POSTOPERATIVE DIAGNOSES: 1. Osteoarthritis, left knee. 2. Obesity. PROCEDURE PERFORMED: Left total knee arthroplasty. INDICATIONS: Ms. Marquez is a 54-year-old female with history of left knee pain and arthritis. She has had pain in her knees for a while now. She has lost over 100 pounds since she began her weight loss program and is now ready to proceed with surgery for left total knee arthroplasty. Risks, benefits, and alternatives of surgery were discussed with the patient, especially complications associated with obesity including wound healing and knee stiffness. She is willing to accept these risks. All questions were answered and consent was obtained. DESCRIPTION OF PROCEDURE: The patient was met in the holding area where her identity and confirmation of procedure was performed. Left lower extremity was marked. She was taken to the operating room where she was placed supine on the operating table. Anesthesia was administered. Tourniquet was applied to the left thigh. The left leg was prepped and draped in a sterile fashion. The patient received preoperative antibiotics as well as TXA and a timeout was performed before initiating the case. On initiation of the case, the leg was exsanguinated and the tourniquet was raised. Total tourniquet time was 120 minutes. Her knee mobility was very limited preoperatively. Knee flexion was only about 45 degrees. The knee was flexed as much as we could and then an incision was made over the front of the knee, dissecting down to the extensor mechanism. Quad tendon was then split along its medial border curving medially around the patella and extending down the medial border of the patellar tendon. The knee was then placed into extension and tissue from the posterior fat pad of the patella and over the anterior distal femur was excised. A flap of tissue off the medial tibial plateau was elevated. The posterior aspect of the patellar tendon insertion was released as the patella was everted and the knee was placed back into flexion. Retractors were placed medial and lateral. The cruciate ligaments were excised. Westwood's line was marked. Our femoral tunnel was then drilled and our intramedullary femoral guide was inserted. The distal femoral cutting block was pinned into place and our distal femur cut was completed. We attempted to place our guide for measuring the distal femur, but we were unable to place the feet under the condyles. We therefore moved to our tibial cut. The extramedullary tibial guide was placed and adjusted for alignment taking 4 mm off the medial tibial plateau. Once we were pleased with our alignment, the cutting block was pinned into position. Again, checked our alignment, we were pleased with its position and our proximal tibial cut was made. The PCL retractor was placed during this procedure. The bony piece of the tibia was then removed and our cut was completed until all the bony pieces were removed. We were then able to continue on with the femur. Our femur was sized to a size 3 and our four-in-one block was pinned into place. Anterior, OPERATIVE REPORT [id number] KIM MARQUEZ posterior and chamfer cuts were completed. The bony pieces were removed. Osteophytes were removed from around the distal femur as well. The trial 4 box cut was then placed and adjusted for position over the distal femur. Once we were pleased with our position, the trial was pinned into place and our box cut was completed using reciprocating saw and osteotome. Bony pieces were removed. We then turned our attention back to the tibia. The tibia was sized to a size 3 and the trial was pinned into place. Again, checked our alignment, we are pleased with its position. We trialled this with our femoral implant and trialled up to a size 14 poly, which point we were getting close to having a good fit and stability in the knee. We then turned our attention to the patella. The patella was everted and towel clips were placed superior and inferior poles. A caliper was used to the floor of the lateral facet. Patella was sized to a size 29 and drilled. The knee was repositioned in flexion and our trial components were removed. The tibia was left into place and the PCL retractor was placed. The tibia was prepared using a reamer and punch in order to place a short 50-mm stem to our tibial baseplate. The trial components were then removed and our laminar hydrant setter was inserted. Osteophytes were removed from the posterior aspect of the distal femur and the tibial plateau. The knee was then taken into extension, irrigated thoroughly with saline. Joint solution was injected around the capsule proximal tibia and the distal femur. The knee was repositioned in flexion and the bony ends were dried. Final components were cemented into place. The excess cement was removed throughout this process. Trial poly was placed and the knee was held in full extension while the cement was allowed to dry. Patella was held with the patellar clamp. Once the cement was dry, we again took it through range of motion and noted to have some slight instability and therefore elected to go with the size 16 poly, at which point we had good fit and stability throughout range of motion, but there did appear to be some instability of the MCL, which is likely damage throughout the surgical process. The knee was replaced into flexion and our final size 16 posterior stabilized poly was placed and tapped into position. Knee was then irrigated thoroughly with saline. A drain was placed in lateral gutter. The extensor mechanism was closed with Vicryl suture. The knee was again taken through motion. Once the extensor mechanism was closed and felt to have good stability. There was not significant laxity at the MCL once everything was closed. The subcutaneous tissues were again irrigated thoroughly with saline. The deep tissues were closed with Vicryl suture and the skin was closed with shwetha. A sterile dressing was placed. The patient was turned back over to anesthesia where she was awakened, extubated, and taken to recovery room in stable condition. POSTOPERATIVE PLAN: The patient is going to be admitted for routine postoperative care. She received 24 hours postoperative antibiotics, will be started on DVT prophylaxis tomorrow. Physical therapy will be consulted to assist with mobilization, weightbearing as tolerated, left lower extremity. PLAN: Home with home health. COMPLICATIONS: None. ESTIMATED BLOOD LOSS: 100 mL. ANESTHESIA: General with peripheral nerve block. TRANSINT:[id number] Voice Confirmation ID: [id number] DOCUMENT ID: [id number] OPERATIVE REPORT [id number] KIM MARQUEZ BRENT M MD CC: [id number] DICTATION DATE: 05/19/202103 LEATHER PRODUCTION ARTISAN: 05/20/20 050 [place] [id number] [place] [id number]
[~2020-05-19 07:35] MED LIST changes: +CYMBALTA30 MG PO; +MIRALAX17 GM PO; +MOBIC7.5 MG PO; +VITAMIN D PO; +ZOCOR10 MG PO
--- NOTE | 2020-05-19 14:30 | NUR ---
RECEIVED TO ROOM 1209 VIA BED FROM PACU. ROUSES TO VERBAL STIMULATION. VSS. DRESSING TO LEFT KNEE DRY AND INTACT. TEDS IN PLACE. DENIES NEEDS.
--- NOTE | 2020-05-19 17:15 | NUR ---
URINE COLLECTED USING STERILE TECHNIQUE. SPECIMEN SENT TO LAB.
--- NOTE | 2020-05-19 18:00 | NUR ---
ATE ABOUT 10% OF SUPPER. UNABLE TO SWALLOW MOST OF THE ITEMS ON TRAY. REFUSED OFFER OF PAIN MEDS. PLACED ON CPM AT THIS TIME.
[2020-05-19 19:28] LABS: BILIRUBIN NEGATIVE (NEGATIVE); KETONE NEGATIVE (NEGATIVE); NITRITE NEGATIVE (NEGATIVE); UROBILINOGEN NORMAL mg/dL (< 2)
--- NOTE | 2020-05-19 19:28 | NUR ---
PATIENT RESTING IN BED ON CPM TO LEFT KNEE. PATIENT RATES PAIN 10/10 THROBBING AT THIS TIME. WILL ADMINISTER TORADOL PER ORDERS. EMPTIED 70ML FROM DRAIN.
--- NOTE | 2020-05-19 20:05 | NUR ---
PATIENT RESTING IN BED WITH NO S/S OF DISTRESS. TOOK PATIENT OFF CMP WITH SECOND PERSON ASSIST. ADMINISTERED MEDS PER ORDERS, PATIENT YASMEEN WELL. PATIENT RATES PAIN 5/10 AFTER TORADOL. PATIENT DENIES NEED FOR ADDITIONAL PAIN MEDICATION AT THIS TIME. PLACED ICE PACK TO LEFT KNEE AND RAISED THE FOOT OF PATIENT'S BED FOR COMFORT. PATIENT DEMONSTRATED USE OF INCENTIVE SPIROMETER PROPERLY. SCD HOSE PLACED ON PATIENT. DRESSING TO LEFT KNEE C/D/I AND DRAIN IN PLACE. PATIENT DENIES OTHER NEEDS AT THIS TIME. BED IN LOWEST POSITION, CALL LIGHT IN REACH, BED ALARM ON, AND PATIENT INSTRUCTED TO CALL WITH NEEDS.
[2020-05-20 05:45] VITALS: BP 131/62
[2020-05-20 06:02] LABS: BASOPHILS 0.2 % (0-2); EOSINOPHILS 0.2 % (0-7); HEMATOCRIT 31.5 % (36.0-48.0); HEMOGLOBIN 9.6 g/dL (12-16); IMMATURE GRANULOCYTES 0.2 % (0-5); LYMPHOCYTES 28.1 % (15-50); MCH 25.8 pg (26.0-34.0); MCHC 30.5 g/dL (31.0-37.0); MCV 84.7 fL (80.0-100.0); MEAN PLATELET VOLUME 11.9 fL (7.4-10.4); MONOCYTES 11.4 % (2-11); NEUTROPHIL ABS# 3.63 10x3/uL (1.56-6.13); NEUTROPHILS 59.9 % (40-80); PLATELET COUNT 165 10x3/uL (130-400); RBC 3.72 10x6/uL (4.00-5.40); RDW 13.8 % (11.5-14.5); WBC 6.1 10x3/uL (4.8-10.8)
[2020-05-20 06:03] LABS: ANION GAP 6.1 mmol/L (8-16); CALCIUM 8.3 mg/dL (8.5-10.1); CARBON DIOXIDE 31.2 mmol/L (21.0-32.0); CREATININE - SERUM 1.1 mg/dL (0.6-1.3); POTASSIUM - SERUM 4.3 mmol/L (3.5-5.1)
[2020-05-20 07:14] VITALS: BP 137/65
--- NOTE | 2020-05-20 07:41 | NUR ---
AWAKE AND ALERT. ORIENTED X3. REPORTS PAIN AT LEVEL 10 "BUT ITS OK FOR NOW. IT'S WHEN IT GETS TO A 15 THAT I NEED SOMETHING." WILL MONITOR. LUNGS ARE CLEAR BILATERALLY, NO COUGH NOTED. SKIN IS INTACT WITHOUT REDNESS EXCEPT INCISION TO LEFT KNEE WHICH HAS A DRY INTACT DRESSING IN PLACE. ON CPM AT THIS TIME. IV TO RIGHT WRIST AREA IS PATENT WITHOUT REDNESS AT INSERTION SITE. BREAKFAST SERVED IN ROOM. DENIES NEEDS.
--- NOTE | 2020-05-20 09:30 | NUR ---
AMBULATED IN HALLWAY WITH PT USING RW. DID WELL. DENIES INCREASED PAIN WITH ACTIVITY.
[2020-05-20 11:00] VITALS: BP 130/54
--- NOTE | 2020-05-20 12:18 | NUR ---
REQUESTED AND GIVEN 2 HYDROCODONE PO FOR C/O LEFT KNEE PAIN LEVEL 10. WILL MONITOR.
--- NOTE | 2020-05-20 12:30 | NUR ---
ATE ALL OF LUNCH SHE WANTED. DENIES NEEDS. NO CHANGES NOTED.
[2020-05-20 13:06] VITALS: Ht 162.6 cm; Wt 115.7 kg
--- NOTE | 2020-05-20 13:33 | NUR ---
AMBULATED IN HALLWAY WITH PT USING RW. VOIDED 200 CC CLEAR YELLOW URINE AFTER ACTIVITY. REPORTS SOME RELIEF WITH USE OF HYDROCODONE.
[2020-05-20 14:00] VITALS: BP 113/86
--- NOTE | 2020-05-20 18:17 | NUR ---
AMBULATED 200 PLUS FEET WITH RW. TO BR AFTER VOIDED 200 CC CLEAR YELLOW URINE.
--- NOTE | 2020-05-20 18:38 | NUR ---
REQUESTED AND GIVEN 2 HYDROCODONE PO FOR C/O PAIN LEVEL 10 TO LEFT KNEE. WILL MONITOR.
[2020-05-20 18:59] VITALS: BP 124/53
--- NOTE | 2020-05-20 18:59 | NUR ---
PATIENT RESTING IN BED WITH NO S/S OF DISTRESS. GUEST AT BEDSIDE. PATIENT DENIES NEEDS AT THIS TIME. BED IN LOWEST POSITION, CALL LIGHT IN REACH. ENCOURAGED PATIENT TO CALL WITH NEEDS.
--- NOTE | 2020-05-20 20:52 | NUR ---
ADMINISTERED MEDS PER ORDERS. PATIENT YASMEEN WELL. ENCOURAGED TO CALL WITH NEEDS.
[2020-05-21 03:48] VITALS: BP 145/97
[2020-05-21 07:34] LABS: ANION GAP 9.1 mmol/L (8-16); CALCIUM 8.2 mg/dL (8.5-10.1); CARBON DIOXIDE 27.6 mmol/L (21.0-32.0); CREATININE - SERUM 0.9 mg/dL (0.6-1.3); POTASSIUM - SERUM 3.7 mmol/L (3.5-5.1)
[2020-05-21 07:45] LABS: BASOPHILS 0.4 % (0-2); EOSINOPHILS 3.6 % (0-7); HEMATOCRIT 28.1 % (36.0-48.0); HEMOGLOBIN 8.8 g/dL (12-16); IMMATURE GRANULOCYTES 0.2 % (0-5); LYMPHOCYTE ABS# 1.23 10x3/uL (1.18-3.74); LYMPHOCYTES 25.8 % (15-50); MCH 25.8 pg (26.0-34.0); MCHC 31.3 g/dL (31.0-37.0); MEAN PLATELET VOLUME 12.1 fL (7.4-10.4); MONOCYTES 10.9 % (2-11); NEUTROPHIL ABS# 2.82 10x3/uL (1.56-6.13); NEUTROPHILS 59.1 % (40-80); PLATELET COUNT 137 10x3/uL (130-400); RBC 3.41 10x6/uL (4.00-5.40); RDW 13.7 % (11.5-14.5); WBC 4.8 10x3/uL (4.8-10.8)
[2020-05-21 07:46] LABS: MCV 82.4 fL (80.0-100.0)
[2020-05-21 08:00] VITALS: BP 129/68
--- NOTE | 2020-05-21 08:15 | NUR ---
PT SITTING UP IN BED WITH BREAKFAST TRAY AT BEDSIDE. PT VOICES HAVING EATEN A SMALL AMOUNT, BUT WAS THROUGH WITH TRAY. PT REPORTS PAIN 10/10 AT THIS TIME. ASSISTED PT WITH WALKER AND MINIMAL ASSIST FROM BED TO BATHROOM, THEN BATHROOM TO BEDSIDE CHAIR. PT YASMEEN WELL. CHAIR ALARM IN PLACE AND ON. DRESSING TO LEFT LOWER EXTREMITY C/D/I, PALPABLE PULSES, EXTREMITY WARM TO TOUCH. SCD'S ON BILATERALLY. PT DENIES FURTHER NEEDS AT THIS TIME. PAIN MED ADMINISTERED PER MD ORDER. CL WITHIN REACH. ENCOURAGED TO CALL WITH NEEDS. CONTINUE POC
--- NOTE | 2020-05-21 11:10 | NUR ---
PT SITTING UP IN CHAIR AT BEDSIDE ON TELEPHONE. NO ACUTE DISTRESS. DENIES FURTHER NEEDS AT THIS TIME. ISP USED AT THIS TIME. CL WITHIN REACH. ENCOURAGED TO CALL WITH NEEDS.
[2020-05-21 11:18] VITALS: BP 150/71
[2020-05-21] MEDS ORDERED: ELIQUIS2.5 MG PO (13:40)
[2020-05-21] MEDS ORDERED: HYDROCODONE-AC1 EAC2 PO (13:42)
--- NOTE | 2020-05-21 20:53 | MORECARE ---
CASE MANAGEMENT DISCHARGE SUMMARY PATIENT: KIM MARQUEZ UNIT: [id number] ADM DATE: 05/19/20 AGE: 54 : 63 SEX: F ROOM/BED: D.1209 AUTHOR: KAMRAN MIR PHYSICIAN: REFERRING PHYSICIAN: WILLI MIKE MD DATE OF SERVICE: 05/21/20 Discharge Plan Patient Name: KIM MARQUEZ Facility: [facility]:[place] : 1965 Planned Disposition: Home with Home Health Anticipated Discharge Date: Discharge Date: 05/21/2020 Expected LOS: Initial Reviewer: [email or web address] Initial Review Date: 05/20/2020 Generated: 05/21/20 9:52 pm Coverage Notice Reviewer: [email or web address] Bay Altamirano Notice Issued Date-Time: 05/21/2020 10:35 Notice Type: Medicare Outpatient Observation Notice Notice Delivered To: Patient Relationship to Patient: Self Sleep Technologist Name: Delivery Method: HAND - Hand Delivered Daya Days: Prior Verbal Notification: Recipient Understood Notice: Yes Recipient Signature: Yes Med Rec Note Co-signed by Attending: Coverage Notice Comment: Reviewer: [email or web address] Bay Altamirano Notice Issued Date-Time: 05/21/2020 9:30 Notice Type: Patient Choice Letter Notice Delivered To: Patient Relationship to Patient: Sleep Technologist Name: Delivery Method: HAND - Hand Delivered Daya Days: Prior Verbal Notification: Recipient Understood Notice: Yes Recipient Signature: Yes Med Rec Note Co-signed by Attending: Coverage Notice Comment: NO PREFERENCE [facility] -NEEDS TO ACCEPT INS Patient Name: KIM MARQUEZ Page 10602 at 2052 All edits/amendments must be made on the electronic document DICTATION DATE: 05/21/202052 BRIAR CUTTER: VIJAY 05/21/202052 RPT#: [id number] DC DATE:05/21/20 STATUS: DIS IN [facility] [address] [place] [address] END OF REPORT
--- NOTE | 2020-05-21 21:00 | MORECARE ---
CASE MANAGEMENT DISCHARGE SUMMARY PATIENT: KIM MARQUEZ UNIT: [id number] ADM DATE: 05/19/20 AGE: 54 : 63 SEX: F ROOM/BED: D.1209 AUTHOR: ADEOLA,DOC PHYSICIAN: REFERRING PHYSICIAN: WILLI MIKE MD DATE OF SERVICE: 05/21/20 Discharge Plan Patient Name: KIM MARQUEZ Facility: [facility]:[place] : 1965 Planned Disposition: Home with Home Health Anticipated Discharge Date: Discharge Date: 05/21/2020 Expected LOS: Initial Reviewer: [email or web address] Initial Review Date: 05/20/2020 Generated: 05/21/20 9:59 pm Comments DCP- Discharge Planning Updated by [email or web address]: Misty Altamirano on 05/21/20 7:[address] Patient Name: KIM MARQUEZ Admission Status: Elective Accout number: [id number] Admission Date: 05-19-2020 : 1965 Admission Diagnosis: Attending: ZANA Current LOS: 2 Anticipated DC Date: Planned Disposition: Home with Home Health Primary Insurance: [employer] CHOICE PPO [facility] Discharge Planning Comments: CM spoke with patient to complete initial dc planning assessment. CM educated patient on the CM role and verbal consent given by patient to complete assessment. Patient lives at home with family. Patient is independent. At discharge patient plans to return home and feels this is a safe discharge. CM discussed availability of home health, rehab services, and medical equipment. DARNELL signed. [facility] will admit 05/22/20 for nursing and PT. Patient will have family to transport home. Patient denied known discharge needs at this time. CM will continue to follow and will assist as needed with dc plans/needs. Medical Education Specialist: Misty Altamirano DCPIA - Discharge Planning Initial Assessment Updated by [email or web address]: Misty Altamirano on 05/21/20 8:55 pm * Is the patient Alert and Oriented? Yes * How many steps to enter\exit or inside your home? * PCP MARTINEZ * [facility] * Preadmission Environment Home with Family * ADLs Independent * Other Equipment WALKER, BSC, SC * List name and contact numbers for known caregivers / representatives who currently or will assist patient after discharge: [facility] - [phone] [facility] [phone] * Verbal permission to speak to the caregivers and representatives has been obtained from the patient. Yes * Community resources currently utilized None * Additional services required to return to the preadmission environment? No * Can the patient safely return to the preadmission environment? Yes * Has this patient been hospitalized within the prior 30 days at any hospital? No Coverage Notice Reviewer: [id number] Altamirano Notice Issued Date-Time: 05/21/2020 10:35 Notice Type: Medicare Outpatient Observation Notice Notice Delivered To: Patient Relationship to Patient: Self [employer]pper [employer] Storage Name: Delivery Method: HAND - Hand Delivered Daya Days: Prior Verbal Notification: Recipient Understood Notice: Yes Recipient Signature: Yes Med Rec Note Co-signed by Attending: Coverage Notice Comment: Reviewer: [id number] Altamirano Notice Issued Date-Time: 05/21/2020 9:30 Notice Type: Patient Choice Letter Notice Delivered To: Patient Relationship to Patient: Dropper [employer] Storage Name: Delivery Method: HAND - Hand Delivered Daya Days: Prior Verbal Notification: Recipient Understood Notice: Yes Recipient Signature: Yes Med Rec Note Co-signed by Attending: Coverage Notice Comment: NO PREFERENCE ON [facility] -NEEDS TO ACCEPT INS Last DP export: 05/21/20 7:53 p Patient Name: KIM MARQUEZ Page 48013 at 2100 All edits/amendments must be made on the electronic document DICTATION DATE: 05/21/202058 TICKET TAKER FERRYBOAT: VIJAY 05/21/202058 RPT#: [id number] DC DATE:05/21/20 STATUS: DIS IN [facility] [address] [place] [address] END OF REPORT
== END 2020-05-21 17:15 | disposition home health service (06) ==
LOC: D.M3 07:35 → D.OPS 07:35 → D.M3 13:41 → D.OPS 13:42 → D.M3 13:42 → OBSVTIME 13:42 → D.M3 05-21 17:15
PROVIDERS: Family Medicine Adult Medicine; ADMIT Orthopaedic Surgery; ATTEND Orthopaedic Surgery
DX: M17.12 Unilateral primary osteoarthritis, left knee (principal); E66.01 Morbid (severe) obesity due to excess calories; I10 Essential (primary) hypertension; K21.9 Gastro-esophageal reflux disease without esophagitis; K59.00 Constipation, unspecified

== ENCOUNTER 2020-07-07 05:09 | Day surgery (SDC) | payer MEDICARE, MEDICAID ==
[~2020-07-07] VITALS: Ht 162.6 cm; Wt 110.0 kg
--- NOTE | ~2020-07-07 | OP ---
PATIENT NAME: KIM MARQUEZ MEDICAL RECORD: [id number] :63 [facility]ATION[facility] ADMISSION DATE: SURGEON: WILLI MIKE MD DATE OF OPERATION: 07/07/2020 PREOPERATIVE DIAGNOSES: Delayed wound healing, left knee incision, status post total knee arthroplasty. POSTOPERATIVE DIAGNOSES: Delayed wound healing, left knee incision, status post total knee arthroplasty. PROCEDURE PERFORMED: 1. Incision and debridement of left knee wound (skin and subcutaneous tissue). 2. Closure of complex wound, left knee (8 cm). INDICATIONS FOR THE PROCEDURE: Ms. Marquez is a 55-year-old female with history of left total knee arthroplasty approximately 6 weeks ago. She has done well postoperatively, but still has a couple of small areas along the distal incision that are not completely healed and with the eschar present. Given the out from surgery, I believe she would benefit from excision of these areas with wound closure and she is agreeable to this. Risks, benefits and alternatives of surgery were discussed with the patient and consent was obtained. DESCRIPTION OF THE PROCEDURE: The patient was met in the holding area where her identity and confirmation of procedure was performed. Left lower extremity was marked. She was taken to the operating room where she was placed supine on the operating table, and anesthesia was administered. A tourniquet was applied to the left thigh and the left leg was prepped and draped in a sterile fashion. The patient received preoperative antibiotics and timeout was performed prior to initiating the case. On initiation of the case, the leg was exsanguinated and tourniquet was raised. Total tourniquet time was 25 minutes. The areas of wound dehiscence along the distal incision were elliptically excised to include full thickness excision of the areas of eschar. The wound bed appeared clean. Cultures were obtained. Following excision. Wound was irrigated thoroughly with saline. The deep tissues were then closed with 2-0 PDS and the skin was closed with nylon. Total length of closure equal to 8 cm. An Aquacel dressing was then applied and this completed our procedure. The patient was turned back over to anesthesia where she was awakened, extubated, and taken to recovery room in stable condition. POSTOPERATIVE PLAN: The patient is going to return home with her family today. She can be weightbearing as tolerated on the left lower extremity and may use an assistive device as needed. We will give her 10 days, prescription for doxycycline prophylaxis treatment for any infection. Plan to see her back in clinic in 2 weeks. COMPLICATIONS: None. ESTIMATED BLOOD LOSS: 5 mL. ANESTHESIA: General LMA. TRANSINT:[id number] Voice Confirmation ID: [id number] DOCUMENT ID: [id number] OPERATIVE REPORT [id number] KIM MARQUEZ BRENT M MD CC: [id number] DICTATION DATE: 07/07/20900 FAMILY SERVICE WORKER: 07/07/20 1424 [facility] 07/07/[address] [id number]
[~2020-07-07 05:09] MED LIST changes: +ELIQUIS2.5 MG PO; +HYDROCODONE-AC1 EAC2 PO
[2020-07-07 05:33] LABS: BASOPHILS 0.2 % (0-2); EOSINOPHILS 2.6 % (0-7); HEMATOCRIT 34.9 % (36.0-48.0); HEMOGLOBIN 10.8 g/dL (12-16); LYMPHOCYTE ABS# 1.97 10x3/uL (1.18-3.74); LYMPHOCYTES 47.2 % (15-50); MCH 25.5 pg (26.0-34.0); MCHC 30.9 g/dL (31.0-37.0); MCV 82.5 fL (80.0-100.0); MEAN PLATELET VOLUME 11.3 fL (7.4-10.4); MONOCYTES 8.9 % (2-11); NEUTROPHIL ABS# 1.71 10x3/uL (1.56-6.13); NEUTROPHILS 41.1 % (40-80); RBC 4.23 10x6/uL (4.00-5.40); RDW 13.8 % (11.5-14.5); WBC 4.2 10x3/uL (4.8-10.8)
[2020-07-07 05:36] LABS: PLATELET COUNT 222 10x3/uL (130-400)
[2020-07-07 06:18] VITALS: BP 152/75; Ht 162.6 cm; Wt 110.0 kg
[2020-07-07] MEDS ORDERED: REGLAN10 MG PO (06:19)
[2020-07-07 06:26] LABS: ANION GAP 12.5 mmol/L (8-16); CALCIUM 9.3 mg/dL (8.5-10.1); CARBON DIOXIDE 28.4 mmol/L (21.0-32.0); POTASSIUM - SERUM 3.9 mmol/L (3.5-5.1)
--- NOTE | 2020-07-07 09:06 | NUR ---
PT STATES NO RELIEF AFTER 1.5 OF DILAUDED STATES THEY GIVE HER HIGHER DOSES AFTER SURGERY NORMALLY. EXPLAINED RISK OF SEDATION.
--- NOTE | 2020-07-07 09:13 | NUR ---
6371 DR. MIKE ROUNDS WITH FAMILY.
--- NOTE | 2020-07-07 09:20 | NUR ---
SPOKE W ANESTHESIA ABOUT 2 MG OF DILAUDED ALREADY AND PT STATES STILL IN PAIN. BP HIGH. OBTAINED ORDER FRO 10 HYDRAL
--- NOTE | 2020-07-07 09:29 | NUR ---
PT STATES BEING IN PAIN. PT SLEEPING. AROUSES TO SPEECH.
== END 2020-07-07 11:05 | disposition home or self-care (01) ==
LOC: D.OPS 05:09
PROVIDERS: Anesthesiology; ATTEND Orthopaedic Surgery
DX: M25.562 Pain in left knee (principal); Z96.652 Presence of left artificial knee joint; T81.30XD Disruption of wound, unspecified, subsequent encounter; M17.0 Bilateral primary osteoarthritis of knee